=== PATIENT | female | born 1970 | race American Indian/Alaskan Native ===

== ENCOUNTER 2019-05-14 13:49 | Outpatient (CLI) | payer MEDICAID ==
--- NOTE | 2019-05-14 14:47 | Mammography Report ---
BILATERAL DIGITAL SCREENING MAMMOGRAM WITH CAD INDICATION: Routine screening mammography. TECHNIQUE: Digital bilateral 2D mammography was obtained in the craniocaudal and mediolateral obliq ue projections. This examination was interpreted with the benefit of Computer-Aided Detection analysi s. COMPARISON: None currently available, patient reports prior mammograms at [facility] in these quang l be requested FINDINGS: Breast Density: The breasts are almost entirely fatty. There is asymmetry in the right slightly lateral anterior breast. This is seen on the CC view only. IMPRESSION: Right slightly lateral anterior breast asymmetry for which comparison to prior outside mammograms is recommended to assess stability. Comparison with prior mammograms is recommended. We will attempt to obtain prior mammograms for niles rison. An addendum will be added to this report once prior images are received. If we do not obtain a prior mammogram within 30 days, a revised report will be issued recommending a recall for additional imaging. Please be advised that the patient should not schedule an appointment for return until adeq uate time (at least 2 weeks) has passed for us to obtain the prior mammogram. BI-RADS Category 0: Incomplete. Needs additional imaging evaluation and/or prior mammograms for niles rison. A "normal" or negative report should not discourage follow up or biopsy of a clinically significant f inding. A written summary of these findings will be mailed to the patient. The patient will be entered into a mammography reporting system which will generate a reminder letter for the patient's next appointmen t at the appropriate interval. The [employer] recommends yearly mammograms starting at age 40 and continuing as l tommy as a woman is in good health. Breast MRI is recommended for women with an approximate 20-25% or greater lifetime risk of breast cancer, including women with a strong family history of breast or ova wallace cancer or who have been treated for Hodgkin's disease. Signer Name: Cuauhtemoc Mohan MD Signed: 05/14/2019 2:43 PM Workstation Name: [id number]
== END 2019-05-14 13:50 | disposition home or self-care (01) ==
LOC: SPVWC 13:49
PROVIDERS: ATTEND Obstetrics & Gynecology
DX: Z12.31 Encounter for screening mammogram for malignant neoplasm of breast (principal); N64.89 Other specified disorders of breast
CPT/HCPCS: 77067